=== PATIENT | female | born 1995 | race African-American/Black ===

== ENCOUNTER 2019-12-31 08:50 | Inpatient (IN) | payer OTHER ==
[2019-12-31] MEDS ORDERED: AMPICILLIN SODIUM 2 GM VIAL ONE (09:35)
[2019-12-31 09:45] VITALS: BMI 25.0
[2019-12-31 10:09] LABS: BASO % 0.5 % (0-2.0); EOS % 0.6 % (0-4.5); HEMATOCRIT 31.3 % (32.4-45.2); HEMOGLOBIN 10.4 GM/dL (10.7-15.3); LYMPH % 10.3 % (8-40); MCH 30.7 pg (25.7-33.7); MCHC 33.2 g/dl (32.0-36.0); MEAN CELL VOLUME 92.4 fl (80-96); MEAN PLT VOLUME 7.3 fl (7.5-11.1); MONO % 7.1 % (3.8-10.2); NEUT % 81.5 % (42.8-82.8); PLATELET COUNT 239 K/MM3 (134-434); RBC 3.39 M/mm3 (3.60-5.2); RDW 13.3 % (11.6-15.6); WHITE BLOOD COUNT 14.4 K/mm3 (4.0-10.0)
[2019-12-31] MEDS ORDERED: AMPICILLIN - 2 GM in SODIUM CHLORIDE 100 ML IVPB ONE (10:15)
[2019-12-31] MEDS ORDERED: ELECTROLYTE-148 SOLN 1,000 ML IV SCH (10:15)
[2019-12-31 10:16] LABS: INR 0.96 (0.83-1.09); PROTHROMBIN TIME (PATIENT) 11.3 SEC (9.7-13.0)
[2019-12-31 10:19] LABS: ACTIVATED PTT 25.4 SECONDS (25.2-36.5)
[2019-12-31] MEDS ORDERED: OXYTOCIN 30 UNITS in 0.9% NS 30 UNIT/500 ML INFUS.BAG IVPB SCH (10:30)
[2019-12-31 10:33] LABS: BLOOD UREA NITROGEN 8.8 mg/dL (7-18); CALCIUM 8.5 mg/dL (8.5-10.1); CREATININE 0.6 mg/dL (0.55-1.3); POTASSIUM 4.1 mmol/L (3.5-5.1)
[2019-12-31] MEDS ORDERED: OXYTOCIN 30 UNITS in 0.9% NS 30 UNIT/500 ML INFUS.BAG IVPB ONE (10:47)
--- NOTE | 2019-12-31 11:42 | HP ---
Past Medical History - Admission Chief Complaint: Scheduled for induction of labor due to grade 3 placenta and ac <3%ile History Source: Patient Limitations to Obtaining History: No Limitations - Past Medical History ...: 3 ...Para: 1 ...Term: 1 ...: 0 ...Spon : 0 ...Induced : 1 ...Living Children: 1 ...Multiple Gestation: 0 ...LMP: 04/04/19 ... Weeks Gestation by Dates: 38.5 ...EDC by Dates: 01/09/20 ...EDC by Sono: 01/06/20 - Past Surgical History Past Surgical History: Yes: None Hx Myomectomy: No Hx Transabdominal Cerclage: No - Smoking History Smoking history: Never smoked Have you smoked in the past 12 months: No - Alcohol/Substance Use Hx Alcohol Use: No History of Substance Use: reports: None Home Medications - Allergies Allergies/Adverse Reactions: Allergies Allergy/AdvReac Type Severity Reaction Status Date / Time latex Allergy Severe Verified 12/31/19 09:28 No Known Drug Allergies Allergy Verified 12/31/19 10:06 - Home Medications Home Medications: Ambulatory Orders No122/Iron/Folic Acid [ Multi Tablet] 1 each PO DAILY 11/11/19 Family Medical History Family History: Denies Review of Systems - Review of Systems Constitutional: reports: No Symptoms Eyes: reports: No Symptoms HENT: reports: No Symptoms Neck: reports: No Symptoms Cardiovascular: reports: No Symptoms Respiratory: reports: No Symptoms Gastrointestinal: reports: No Symptoms Genitourinary: reports: No Symptoms Breasts: reports: No Symptoms Reported Musculoskeletal: reports: No Symptoms Integumentary: reports: No Symptoms Neurological: reports: No Symptoms Endocrine: reports: No Symptoms Hematology/Lymphatic: reports: No Symptoms Psychiatric: reports: No Symptoms Physical Exam - Maternity Vital Signs: Vital Signs Temperature 98.3 F 12/31/19 10:00 Pulse Rate 97 H 12/31/19 10:00 Respiratory Rate 12/31/19 10:00 Blood Pressure 110/64 12/31/19 10:00 O2 Sat by Pulse Oximetry (%) 99 12/31/19 09:15 Constitutional: Yes: No Distress - Abdominal Exam/OB Number of Fetuses: Single Presentation: Vertex Regularity: Irritability Monitor Mode: External Heart Rate (range): 140 Category: I - Vaginal Exam/OB Vaginal Bleeding: No Speculum Exam: No Dilatation (cm): 3-4 Effacement (%): 60 Amniotic Membrane Status: Intact Presentation: Vertex/Position Station: -2 - Physical Exam Edema: No - Labs Lab Results: CBC, BMP 12/31/19 09:40 12/31/19 09:40 Problem List - Problems (1) 39 weeks gestation of Code(s): Z3A.39 - 39 WEEKS GESTATION OF Assessment/Plan 24 year old at 39w1d for induction of labor Grade 3 pl, AC <3%ile Non compliant with care For Pitocin Anticipate vaginal delivery
[2019-12-31] MEDS ORDERED: AMPICILLIN SODIUM 1 GM VIAL ONE ×2 (13:52→18:06)
[2019-12-31] MEDS: AMPICILLIN - 1 GM in SODIUM CHLORIDE 100 ML IVPB SCH ×3 (13:59→23:03)
--- NOTE | 2019-12-31 14:01 | PN ---
Progress Note (short form) - Note Progress Note: IOL Pitocin Mild contractions Cat 1 tracing Contractions q 4-5 min VE 5/60/-2, vertex, intact Continue with Pitocin ROM next exam Problem List - Problems (1) 39 weeks gestation of Code(s): Z3A.39 - 39 WEEKS GESTATION OF
--- NOTE | 2019-12-31 16:18 | PN ---
Progress Note (short form) - Note Progress Note: IOL Pitocin More uncomfortable Declines pain management Cat 1 tracing Contractions q 3 min VE 5/70/-2, AROM scant clear fluid Anticipate vag delivery Problem List - Problems (1) 39 weeks gestation of Code(s): Z3A.39 - 39 WEEKS GESTATION OF
[2019-12-31] MEDS ORDERED: NALOXONE HCL 0.4 MG/ML VIAL IVPUSH PRN (16:43)
[2019-12-31] MEDS ORDERED: FENTANYL/BUPIVACAINE/NS/PF - PCEA - 50 ML DISP.SYRIN EP SCH (16:45)
[2019-12-31] MEDS ORDERED: BUPIVACAINE HCL/PF 0.25% (2.5MG/ML) 10 ML VIAL ONE (16:51)
[2019-12-31] MEDS ORDERED: FENTANYL/BUPIVACAINE/NS/PF - PCEA - 50 ML DISP.SYRIN EP ONE (16:52)
[2019-12-31] MEDS ORDERED: OXYTOCIN 20 UNITS in 0.9% NS 20 UNIT/1,000 ML INFUS.BAG IV ONE ×2 (18:26→20:27)
[2019-12-31] MEDS ORDERED: BENZOCAINE 28 GM HEMORRHOIDAL OINTMENT TP PRN (18:51)
[2019-12-31] MEDS ORDERED: BENZOCAINE 20% 57 GM BOTTLE TP PRN (18:51)
[2019-12-31] MEDS ORDERED: BISACODYL 10 MG SUPP.RECT RC PRN (18:51)
[2019-12-31] MEDS ORDERED: WITCH HAZEL 50% (TUCKS) 40 PAD/JAR PAD TP PRN (18:51)
--- NOTE | 2019-12-31 18:51 | PN ---
Delivery - Delivery Vaginal Delivery: No Problems, Spontaneous (Good maternal pushing efforts, GERALDINE, delivered atraumatically, perineum intact) Type of Anesthesia: Epidural Episiotomy/Laceration: None EBL (cc): 350 Delivery, Single - Feeding Plan Initial Plan: Elected not to breastfeed exclusively throughout hospitalization
[2019-12-31] MEDS ORDERED: OXYTOCIN 20 UNITS in 0.9% NS 20 UNIT/1,000 ML INFUS.BAG IV SCH (19:00)
[2019-12-31 19:11] LABS: CORD BASE EXCESS -1.1 mmol/L (0-2); CORD HCO3 27.1 mmHg (20-29); CORD PCO2 59.9 mmHg (30-78); CORD pH 7.273 (7.14-7.44)
[2019-12-31 19:14] LABS: CORD HCO3 21.7 mmHg (20-29); CORD PCO2 42.1 mmHg (30-78); CORD pH 7.33 (7.14-7.44)
[2019-12-31] MEDS: ACETAMINOPHEN 325 MG TABLET (FP) PO PRN (20:24)
[2019-12-31] MEDS: IBUPROFEN 600 MG TABLET (FP) PO PRN (20:24)
[2019-12-31] MEDS ORDERED: ACETAMINOPHEN 325 MG TABLET (FP) ONE (20:27)
[2019-12-31] MEDS ORDERED: IBUPROFEN 600 MG TABLET (FP) PO ONE (20:27)
[2019-12-31] MEDS ORDERED: PCA PUMP NR ONE (20:40)
[2020-01-01] MEDS: IBUPROFEN 600 MG TABLET (FP) PO PRN ×3 (02:11→18:17)
[2020-01-01] MEDS: ACETAMINOPHEN 325 MG TABLET (FP) PO PRN ×3 (02:11→18:17)
[2020-01-01 09:15] LABS: BASO % 0.4 % (0-2.0); EOS % 0.6 % (0-4.5); HEMATOCRIT 29.6 % (32.4-45.2); HEMOGLOBIN 9.9 GM/dL (10.7-15.3); LYMPH % 11.4 % (8-40); MCH 30.9 pg (25.7-33.7); MCHC 33.3 g/dl (32.0-36.0); MEAN CELL VOLUME 92.6 fl (80-96); MEAN PLT VOLUME 7.5 fl (7.5-11.1); MONO % 8.2 % (3.8-10.2); NEUT % 79.4 % (42.8-82.8); PLATELET COUNT 206 K/MM3 (134-434); RDW 13.1 % (11.6-15.6); WHITE BLOOD COUNT 14.2 K/mm3 (4.0-10.0)
--- NOTE | 2020-01-01 10:24 | PN ---
Post Progress Note Post Day: 1 Type of Delivery: Vital Signs: Vital Signs Temperature 98.7 F 12/31/19 23:24 Pulse Rate 90 12/31/19 23:24 Respiratory Rate 20 12/31/19 23:24 Blood Pressure 119/73 12/31/19 23:24 O2 Sat by Pulse Oximetry (%) 100 12/31/19 19:30 Breast Exam: Yes: Soft Uterus: Yes: Fundus Firm Abdomen/GI: Yes: Abdomen soft, Tolerating PO Lochia: Yes: Rubra Lochia, amount: Small Extremities: Yes: Calves non-tender Activity: Ambulating - Labs Labs: CBC WBC 14.2 K/mm3 (4.0-10.0) H 01/01/20 07:58 RBC 3.20 M/mm3 (3.60-5.2) L 01/01/20 07:58 Hgb 9.9 GM/dL (10.7-15.3) L 01/01/20 07:58 Hct 29.6 % (32.4-45.2) L 01/01/20 07:58 MCV 92.6 fl (80-96) 01/01/20 07:58 MCH 30.9 pg (25.7-33.7) 01/01/20 07:58 MCHC 33.3 g/dl (32.0-36.0) 01/01/20 07:58 RDW 13.1 % (11.6-15.6) 01/01/20 07:58 Plt Count 206 K/MM3 (134-434) 01/01/20 07:58 MPV 7.5 fl (7.5-11.1) 01/01/20 07:58 Absolute Neuts (auto) 11.3 K/mm3 (1.5-8.0) H 01/01/20 07:58 Neutrophils % 79.4 % (42.8-82.8) 01/01/20 07:58 Lymphocytes % 11.4 % (8-40) 01/01/20 07:58 Monocytes % 8.2 % (3.8-10.2) 01/01/20 07:58 Eosinophils % 0.6 % (0-4.5) 01/01/20 07:58 Basophils % 0.4 % (0-2.0) 01/01/20 07:58 Nucleated RBC % 0 % (0-0) 01/01/20 07:58 Assessment/Plan PPD #1, hemodynamically stable Monitor vitals Regular diet Pain management Ambulation encouraged Baby not yet cleared for d/c; d/c home in AM
--- NOTE | 2020-01-01 16:49 | DS ---
Physical Exam-[employer] PACKER Vital Signs: Vital Signs Temperature 97.9 F 01/01/20 14:00 Pulse Rate 82 01/01/20 14:00 Respiratory Rate 18 01/01/20 14:00 Blood Pressure 106/68 01/01/20 14:00 O2 Sat by Pulse Oximetry (%) 100 12/31/19 19:30 Constitutional: Yes: Well Nourished, No Distress, Calm Cardiovascular: Yes: Regular Rate and Rhythm Respiratory: Yes: CTA Bilaterally Gastrointestinal: Yes: Normal Bowel Sounds, Soft Pelvis: Yes: WNL External Genitalia: Yes: Normal Internal Exam Deferred: Yes ....Post : Yes: Uterus firm, Uterus non-tender Breast(s): Yes: WNL Musculoskeletal: Yes: WNL Extremities: Yes: WNL Edema: No Neurological: Yes: Alert, Oriented ...Motor Strength: WNL Psychiatric: Yes: Alert, Oriented Labs: CBC, BMP 01/01/20 07:58 12/31/19 09:40 Delivery - Delivery Vaginal Delivery: No Problems, Spontaneous (Good maternal pushing efforts, GERALDINE, delivered atraumatically, perineum intact) Type of Anesthesia: Epidural Episiotomy/Laceration: None EBL (cc): 350 Delivery, Single - Stages of Labor Date 1st Stage Initiatied: 12/31/19 Time 1st Stage Initiated: 12:00 Date 2nd Stage Initiated: 12/31/19 Time 2nd Stage Initiated: 18:20 Date of Delivery: 12/31/19 Time of Delivery: 18:35 Time Placenta Delivered: 18:40 - Condition of Accounts Payable Professional/Ultrasound Tech Present: [place]: Tiffanie Alexander Infant Gender: Male Weight: 3.43 kg Position: Left, OA Total Hours ROM (Hrs/Mins): 2hrs/27mins - 1 Minute Total Score: 9 5 Minutes Total Score: 9 - Feeding Plan Initial Plan: Elected not to breastfeed exclusively throughout hospitalization Discharge Summary Problems reviewed: Yes Reason For Visit: INDUCTION OF LABOR Current Active Problems 39 weeks gestation of (Acute) Plan of Treatment: discharge home, continue PNV, f/u in 4-6 weeks for PP visit, preeclampsia and PPH precautions discussed, pelvic rest x 6 weeks Condition: Good - Instructions Diet, Activity, Other Instructions: regular diet Referrals: Laina Alexander MD [Staff Physician] - Disposition: HOME - Home Medications Comprehensive Discharge Medication List: Ambulatory Orders No122/Iron/Folic Acid [ Multi Tablet] 1 each PO DAILY 11/11/19
[2020-01-01 18:36] VITALS: BP 110/69; PULSE 75; TEMP 98.3
== END 2020-01-01 21:35 | disposition home or self-care (01) | DRG 560 ==
LOC: JLDR 08:50 → J3W 21:10
PROVIDERS: ADMIT Obstetrics & Gynecology; ATTEND Obstetrics & Gynecology
PROC: 10907ZC Drainage of Amniotic Fluid, Therapeutic from Products of Conception, Via Natural or Artificial Opening (ICD-10-PCS; principal; 2019-12-31)
PROC: 3E033VJ Introduction of Other Hormone into Peripheral Vein, Percutaneous Approach (ICD-10-PCS; 2019-12-31)
DX: O43.893 Other placental disorders, third trimester (principal); Z3A.39 39 weeks gestation of pregnancy; Z37.0 Single live birth
CPT/HCPCS: 36415; 36600; 59409; 80048; 82803; 85025; 85610; 85730; 86780; 86850; 86900; 86901; 87389; U0003

== ENCOUNTER 2023-08-19 09:36 | Emergency (ER) | payer OTHER ==
[2023-08-19 09:49] VITALS: BP 114/62; PULSE 98; RESP 18; TEMP 99.1; BMI 20.3
[2023-08-19] MEDS: ACETAMINOPHEN 500 MG TABLET (FP) PO ONE ×2 (10:46→11:07)
[2023-08-19 10:58] LABS: EPI CELLS >36 /uL (0-25.1); HYALINE CASTS 0 /uL (0-3.1); URINE APPEARANCE CLEAR; URINE BACTERIA 1006 /uL (0-1359); URINE BILIRUBIN NEGATIVE (NEGATIVE); URINE COLOR YELLOW; URINE GLUCOSE (UA) NEGATIVE (NEGATIVE); URINE KETONE NEGATIVE (NEGATIVE); URINE LEUK ESTERASE 1+ (NEGATIVE); URINE NITRITE NEGATIVE (NEGATIVE); URINE PROTEIN NEGATIVE (NEGATIVE); URINE RBC 4 /uL (0-23.9); URINE UROBILINOGEN 0.2 mg/dL (0.2-1.0); URINE WBC 25 /uL (0-25.8)
[2023-08-19] MEDS ORDERED: ACETAMINOPHEN 325 MG TABLET (FP) ONE (10:58)
[2023-08-19 11:33] LABS: BASO % 0.7 % (0-2.0); EOS % 1.4 % (0-4.5); HEMATOCRIT 39.5 % (32.4-45.2); HEMOGLOBIN 13.3 GM/dL (10.7-15.3); LYMPH % 27.3 % (8-40); MCH 31.3 pg (25.7-33.7); MCHC 33.6 g/dl (32.0-36.0); MEAN CELL VOLUME 93.2 fl (80-96); MEAN PLT VOLUME 8.2 fl (7.5-11.1); MONO % 7.5 % (3.8-10.2); NEUT % 63.1 % (42.8-82.8); PLATELET COUNT 215 10^3/uL (134-434); RBC 4.24 M/mm3 (3.60-5.2); RDW 12.7 % (11.6-15.6)
[2023-08-19 12:03] LABS: POTASSIUM 4.1 mmol/L (3.5-5.1)
[2023-08-19 12:05] LABS: CALCIUM 9.1 mg/dL (8.5-10.1)
[2023-08-19 12:06] LABS: ALBUMIN 3.9 g/dl (3.4-5.0)
[2023-08-19 12:08] LABS: CREATININE 0.7 mg/dL (0.55-1.3)
[2023-08-19 12:10] LABS: BILIRUBIN,TOTAL 1.2 mg/dL (0.2-1); TOT PROT 7.4 g/dl (6.4-8.2)
== END 2023-08-19 14:37 | disposition home or self-care (01) ==
LOC: JER 09:36
DX: O26.891 Other specified pregnancy related conditions, first trimester (principal); R10.32 Left lower quadrant pain; Z3A.01 Less than 8 weeks gestation of pregnancy
CPT/HCPCS: 36415; 76817-TC; 80053; 81003; 84702; 84703; 85025; 86850; 86900; 86901; 87086; 93005; 93010; 99285-25